=== PATIENT | female | born 1955 | race African-American/Black ===

== ENCOUNTER → 2018-08-29 | Outpatient (CLI) | payer BC, OTHER ==
[~2018-08-29] MED LIST: CALCIUM; DIFLUCAN40 MG/1 ML; OMEGA-3100 MG PO; TENORMIN
--- NOTE | 2018-08-29 14:08 | 2DMMODE ---
[facility] [employer] [place] [address] 2 D/M-MODE ECHOCARDIOGRAM Name: ANGELA MELTON Room #: [facility] [id number] ������������� Admission: 08/29/18 ������������� Attend Phys: Berenice Busch MD Discharge: ��� ������������� ��� Date of : 55 Date of Service: 08/29/18 1408 �� Report #: [id number] �������� ��������������������������������������������[id number] THIS REPORT FOR: //name// APPROVED REPORT Study performed: 08/29/2018 13:11:06 EXAM: Comprehensive 2D, Doppler, and color-flow Echocardiogram Patient Location: Out-Patient Status: routine BSA: 1.82 HR: 70 bpm BP: 108/82 mmHg Rhythm: NSR Other Information Study Quality: Adequate Indications Palpitations 2D Dimensions RVDd: 33.46 mm IVSd: 9.04 (7-11mm) LVOT Diam: 20.43 (18-24mm) LVDd: 37.39 mm PWd: 7.96 (7-11mm) Ascending Ao: 27.03 (22-36mm) LVDs: 25.72 (25-40mm) Aortic Root: 30.24 mm Volumes Left Atrial Volume (Systole) Single Plane 4CH: 20.18 mL Single Plane 2CH: 19.99 mL LA ESV Index: 12.00 mL/m2 Aortic Valve AoV Peak Adonis.: 1.28 m/s AO Peak Gr.: 6.59 mmHg LVOT Max P.83 mmHg LVOT Max V: 1.21 m/s ASHLEY Vmax: 3.08 cm2 Mitral Valve E/A Ratio: 0.8 MV Decel. Time: 201.53 ms MV E Max Adonis.: 0.76 m/s [facility] [address] [address] 2 D/M-MODE ECHOCARDIOGRAM Name: ANGELA MELTON Room #: [facility]#: [id number] ������������� Admission: 08/29/18 ������������� Attend Phys: Berenice Busch MD Discharge: ��� ������������� ��� Date of : 55 Date of Service: 08/29/18 1408 �� Report #: [id number] �������� ��������������������������������������������[id number] MV A Adonis.: 0.97 m/s MV PHT: 58.44 ms IVRT: 73.82 ms Pulmonary Valve PV Peak Adonis.: 0.77 m/s PV Peak Gr.: 2.40 mmHg Pulmonary Vein P Vein S: 0.61 m/s P Vein A: 0.56 m/s P Vein D: 0.40 m/s P Vein A Dur.: 124.6 msec P Vein S/D Ratio: 1.52 Tricuspid Valve TR Peak Adonis.: 2.38 m/s RAP Estimate: 5.00 mmHg TR Peak Gr.: 22.65 mmHg PA Pressure: 28.00 mmHg Left Ventricle The left ventricle is normal size. There is normal LV segmental wall motion. There is normal left ventricular wall thickness. Left ventricular systolic function is normal. LVEF is 60%. Mild diastolic dysfunction is present (impaired relaxation pattern). Right Ventricle The right ventricle is normal size. The right ventricular systolic function is normal. Atria The left atrium size is normal. The right atrium size is normal. Aortic Valve The aortic valve is normal in structure. No aortic regurgitation is present. There is no aortic valvular stenosis. Mitral Valve The mitral valve is normal in structure. Trace mitral regurgitation. Tricuspid Valve The tricuspid valve is normal in structure. Moderate tricuspid regurgitation. Estimated PAP is 25-30mmHg. Pulmonic Valve The pulmonary valve is normal in structure. Trace pulmonic regurgitation. [facility] [address] [place] [address] 2 D/M-MODE ECHOCARDIOGRAM Name: ANGELA MELTON CHOI [facility] [id number] ������������� Admission: 08/29/18 ������������� Attend Phys: Berenice Busch MD Discharge: ��� ������������� ��� Date of : 55 Date of Service: 08/29/18 1408 �� Report #: [id number] �������� ��������������������������������������������[id number] [employer] The aortic root is normal in size. The ascending aorta is normal in size. IVC is normal in size and collapses >50% with inspiration. Pericardium There is no pericardial effusion. <Conclusion> Left ventricular systolic function is normal. There is normal LV segmental wall motion. LVEF is 60%. Mild diastolic dysfunction The aortic valve is normal in structure. No aortic regurgitation or stenosis The mitral valve is normal in structure. Trace mitral regurgitation. Moderate tricuspid regurgitation. Estimated pulmonary artery pressure of 25-30mmHg. There is no pericardial effusion. ��������������������������������������������� <ELECTRONICALLY SIGNED> ���������������������������������������� By: Gorge Newton MD, [facility] ��������������������������������������������� 08/29/18 1408 1408 1408 Gorge Newton MD, FACC /INF
== END ==
LOC: CV 12:15
DX: I07.1 Rheumatic tricuspid insufficiency (principal)

== ENCOUNTER 2018-09-24 05:37 | Emergency (ER) | payer BC, OTHER ==
[~2018-09-24] VITALS: Ht 172.7 cm; Wt 66.2 kg
[2018-09-24 06:02] LABS: ABSOLUTE NEUTROPHILS 2.3 thou/uL (1.4-8.2); BASOPHILS 0.6 % (0.0-2.0); EOSINOPHILS 2.9 % (0.0-3.0); HEMATOCRIT 41.2 % (37.0-47.0); HEMOGLOBIN 13.2 gm/dL (12.0-15.0); LYMPHOCYTES 44.2 % (24.0-44.0); MCH 21.7 pg (26.0-34.0); MCHC 31.9 g/dL (28.0-37.0); MCV 67.9 fL (80.0-100.0); PLATELET COUNT 303 thou/uL (150-400); POLYS 42.3 % (36.0-66.0); RBC 6.07 mil/uL (4.20-5.00); RDW 14.9 % (10.5-14.5); WBC 5.6 thou/uL (4.0-11.0)
[2018-09-24 06:09] LABS: ANION GAP 14 mmol/L (7-16); BUN 13 mg/dL (7-18); CALCIUM 9.7 mg/dL (8.5-10.1); CHLORIDE 103 mmol/L (98-107); CO2 23 mmol/L (21-32); GLUCOSE 132 mg/dL (74-106); POTASSIUM 3.5 mmol/L (3.5-5.1); SODIUM 140 mmol/L (136-145)
[2018-09-24 06:17] LABS: TROPONIN-I <0.06 ng/mL (<0.06)
[2018-09-24 07:00] VITALS: BP 111/74
--- NOTE | 2018-09-24 08:19 | EKG ---
[address] [address] ELECTROCARDIOGRAM REPORT Name: ANGELA MELTON [id number] ������������������ Admission: 09/24/18 ������������������ Attend Phys: Discharge: 09/24/18 ������������������ Date of : 55 Report #: [id number] ����������������������������������������������������������������� [id number] THIS REPORT FOR: //name// [facility] ED Test Date: 2018-09-24 Test Time: 05:41:15 Pat Name: ANGELA MELTON Department: Room: Gender: F [employer] Technician: BARBRA : 1955 Requested By: Eric Isidro Order Number: [id number] MD: Gorge Newton Measurements Intervals [place] Rate: 113 P: 81 NV: 169 QRS: 74 QRSD: 80 T: 29 QT: 325 QTc: 446 Interpretive Statements Sinus tachycardia Right atrial enlargement Compared to ECG 05/02/2010 17:30:30 no significant change was found Electronically Signed On 09-24-2018 8:18:53 CDT by Gorge Newton [email or web address] ��������������������������������������������� <ELECTRONICALLY SIGNED> ���������������������������������������� By: Gorge Newton MD, [facility] ��������������������������������������������� 09/24/18 0818 0541 0 Gorge Newton MD, FACC /EPI
== END 2018-09-24 07:25 | disposition home or self-care (01) ==
LOC: ER 05:37
PROVIDERS: Emergency Medicine
DX: R00.2 Palpitations (principal); R06.02 Shortness of breath; I10 Essential (primary) hypertension